=== PATIENT | female | born 1955 | race African-American/Black ===

== ENCOUNTER 2023-07-14 11:58 | Emergency (ER) | payer OTHER ==
[~2023-07-14] VITALS: Ht 162.6 cm; Wt 59.0 kg
[2023-07-14 12:00] VITALS: BP_SYST 154; PULSE 106; RESP 18; TEMP 99; O2SAT 99
[2023-07-14 12:21] LABS: BASOPHILS # (AUTO) 0.1 K/uL (0.0-0.2); BASOPHILS % (AUTO) 0.8 % (0.0-2.0); EOSINOPHILS # (AUTO) 0.2 K/uL (0.0-0.4); EOSINOPHILS % (AUTO) 2.1 % (0.0-4.0); HEMATOCRIT 31.9 % (36-48); HEMOGLOBIN 10.8 g/dL (12.0-16.0); LYMPHOCYTES # (AUTO) 1.4 K/uL (1.0-5.5); LYMPHOCYTES % (AUTO) 19.8 % (20.5-51.5); MEAN CORPUSCULAR HEMOGLOBIN 33 pg (27-31); MEAN CORPUSCULAR HGB CONC 34 % (32-36); MEAN CORPUSCULAR VOLUME 97 fL (79.0-98.0); MONOCYTES # (AUTO) 1.7 K/uL (0.0-1.0); MONOCYTES % (AUTO) 23.4 % (1.7-9.3); NEUTROPHILS % (AUTO) 53.9 % (40.0-70.0); PLATELET COUNT (AUTO) 105 K/uL (130-430); RED BLOOD CELL COUNT(AUTO) 3.28 MIL/uL (4.2-6.2); RED CELL DISTRIBUTION WIDTH 15.7 % (9.0-15.0); WHITE BLOOD COUNT (AUTO) 7.3 K/uL (4.8-10.8)
[2023-07-14] MEDS ORDERED: niCARdipine 25 MG in D5W 240 ML IV PRN (12:30)
[2023-07-14 12:38] LABS: INR 1.2 (0.8-1.2); PROTHROMBIN TIME 12.6 SECS (9.5-12.5)
[2023-07-14 12:47] LABS: ALANINE AMINOTRANSFERASE 39 U/L (12-78); ALBUMIN 3.1 g/dL (3.4-4.8); ANION GAP 10 (5-15); ASPARTATE AMINOTRANSFERASE 115 U/L (10-37); CALCIUM 10.8 mg/dL (8.4-11.0); CARBON DIOXIDE 24 mmol/L (23-29); CHLORIDE 105 mmol/L (98-107); CREATININE 1.02 mg/dL (0.55-1.30); GFR AFRICAN AMERICAN 69 mL/min (>90); GLUCOSE 94 mg/dL (74-106); POTASSIUM 3.4 mmol/L (3.5-5.1); SODIUM SERUM 139 mmol/L (136-145); TOTAL BILIRUBIN 2.4 mg/dL (0.0-1.0); TOTAL PROTEIN, SERUM 8.5 g/dL (6.4-8.3); UREA NITROGEN, BLOOD 15 mg/dL (8-21)
[2023-07-14 12:49] LABS: GFR NON AFRICAN-AMERICAN 57 mL/min (>90)
[2023-07-14 13:10] VITALS: BP_SYST 135; PULSE 107; RESP 16; TEMP 97.7; O2SAT 99
== END 2023-07-14 14:57 | disposition short-term general hospital (02) ==
LOC: SED 11:58
DX: I61.5 Nontraumatic intracerebral hemorrhage, intraventricular (principal); I10 Essential (primary) hypertension
CPT/HCPCS: 36415; 70450-TC; 71045; 76376; 80053; 83605; 84484; 85025; 85610-TC; 85730-TC; 93005; 99291; J7060

== ENCOUNTER 2024-02-12 11:00 | Inpatient (IN) | payer OTHER ==
[~2024-02-12] VITALS: Ht 162.6 cm; Wt 64.9 kg
[~2024-02-12 11:00] MED LIST: DOXY100C5 PO
[2024-02-12 11:10] VITALS: BP_SYST 141; PULSE 71; RESP 18; TEMP 98.3; O2SAT 97
[2024-02-12 11:50] LABS: BASOPHILS % (AUTO) 0.8 % (0.0-2.0); EOSINOPHILS # (AUTO) 0.2 K/uL (0.0-0.4); EOSINOPHILS % (AUTO) 3.3 % (0.0-4.0); HEMOGLOBIN 10.3 g/dL (12.0-16.0); LYMPHOCYTES # (AUTO) 1.3 K/uL (1.0-5.5); LYMPHOCYTES % (AUTO) 26.2 % (20.5-51.5); MEAN CORPUSCULAR HEMOGLOBIN 32 pg (27-31); MEAN CORPUSCULAR HGB CONC 34 % (32-36); MEAN CORPUSCULAR VOLUME 94 fL (79.0-98.0); MONOCYTES % (AUTO) 20.1 % (1.7-9.3); NEUTROPHILS # (AUTO) 2.5 K/uL (1.8-7.7); NEUTROPHILS % (AUTO) 49.6 % (40.0-70.0); PLATELET COUNT (AUTO) 84 K/uL (130-430); RED BLOOD CELL COUNT(AUTO) 3.19 MIL/uL (4.2-6.2); RED CELL DISTRIBUTION WIDTH 19.4 % (9.0-15.0)
[2024-02-12 12:05] LABS: CALCIUM 9.5 mg/dL (8.4-11.0); CREATININE 0.83 mg/dL (0.55-1.30); POTASSIUM 3.7 mmol/L (3.5-5.1)
[2024-02-12] MEDS ORDERED: CRE5 PO (12:59)
[2024-02-12] MEDS ORDERED: FOLI-43 PO (12:59)
[2024-02-12] MEDS ORDERED: LACT10SO6 PO (12:59)
[2024-02-12] MEDS ORDERED: ACETAMINOPHEN 325 MG TABLET PO PRN (13:00)
[2024-02-12] MEDS ORDERED: MORPHINE 2 MG/ML INJ. SYRINGE IVP PRN (13:00)
[2024-02-12] MEDS ORDERED: BENA40TA65 PO (13:01)
[2024-02-12] MEDS ORDERED: ACET325T39 PO (13:01)
[2024-02-12] MEDS ORDERED: HYDR-500 PO (13:01)
[2024-02-12] MEDS ORDERED: CARV12.548 PO (13:03)
[2024-02-12] MEDS ORDERED: LEVE500T99 PO (13:03)
[2024-02-12] MEDS ORDERED: ZOLPIDEM TARTRATE 5 MG TABLET PO PRN (14:15)
[2024-02-12] MEDS: CARVEDILOL 6.25 MG TABLET (COREG) PO ONE (14:23)
[2024-02-12] MEDS: LISINOPRIL 10 MG TABLET (PRINIVIL) PO ONE (14:23)
[2024-02-12] MEDS: NACL 0.9% 1,000 ML IV SCH (14:24)
[2024-02-12] MEDS: PANTOPRAZOLE SODIUM 40 MG/VIAL (PROTONIX) IVP ONE (15:56)
[2024-02-12] MEDS: MORPHINE 4 MG INJ. 4 MG/ML VIAL IVP PRN (18:53)
[2024-02-12 20:00] VITALS: BP_SYST 144; PULSE 67; RESP 18; TEMP 96.7; O2SAT 95
[2024-02-12 20:16] VITALS: BP_SYST 144; PULSE 67; RESP 18; TEMP 96.7
[2024-02-12] MEDS ORDERED: levETIRAcetam 500 MG TABLET PO ONE (21:00)
[2024-02-12] MEDS: CARVEDILOL 12.5 MG TABLET (COREG) PO SCH (21:25)
[2024-02-12] MEDS: levETIRAcetam 500 MG TABLET PO SCH (21:25)
[2024-02-13 01:07] VITALS: BP_SYST 146; PULSE 61; RESP 17; TEMP 97.6; O2SAT 94
[2024-02-13 08:00] VITALS: BP_SYST 129; PULSE 71; RESP 16; TEMP 96.8; O2SAT 95
[2024-02-13] MEDS: MIDAZOLAM HCL 5 MG/5 ML VIAL ONE (08:19)
[2024-02-13] MEDS: MEPERIDINE 100 MG INJ. 100 MG/ML VIAL ONE (08:19)
[2024-02-13 09:06] LABS: BASOPHILS % (AUTO) 0.5 % (0.0-2.0); EOSINOPHILS # (AUTO) 0.2 K/uL (0.0-0.4); EOSINOPHILS % (AUTO) 3.7 % (0.0-4.0); HEMATOCRIT 31.2 % (36-48); HEMOGLOBIN 10.6 g/dL (12.0-16.0); LYMPHOCYTES # (AUTO) 0.7 K/uL (1.0-5.5); LYMPHOCYTES % (AUTO) 15.3 % (20.5-51.5); MEAN CORPUSCULAR HEMOGLOBIN 32 pg (27-31); MEAN CORPUSCULAR HGB CONC 34 % (32-36); MEAN CORPUSCULAR VOLUME 94 fL (79.0-98.0); MONOCYTES # (AUTO) 0.9 K/uL (0.0-1.0); MONOCYTES % (AUTO) 19.7 % (1.7-9.3); NEUTROPHILS # (AUTO) 2.8 K/uL (1.8-7.7); NEUTROPHILS % (AUTO) 60.8 % (40.0-70.0); PLATELET COUNT (AUTO) 77 K/uL (130-430); RED BLOOD CELL COUNT(AUTO) 3.33 MIL/uL (4.2-6.2); RED CELL DISTRIBUTION WIDTH 18.9 % (9.0-15.0); WHITE BLOOD COUNT (AUTO) 4.6 K/uL (4.8-10.8)
[2024-02-13 09:07] LABS: ALBUMIN 2.4 g/dL (3.4-4.8); CREATININE 0.78 mg/dL (0.55-1.30); POTASSIUM 3.8 mmol/L (3.5-5.1); TOTAL BILIRUBIN 2.2 mg/dL (0.0-1.0); TOTAL PROTEIN, SERUM 6.6 g/dL (6.4-8.3)
[2024-02-13 09:19] LABS: INR 1.3 (0.8-1.2); PROTHROMBIN TIME 13.6 SECS (9.5-12.5)
[2024-02-13] MEDS: PANTOPRAZOLE SODIUM 40 MG/VIAL (PROTONIX) IVP SCH ×2 (09:29→21:40)
[2024-02-13] MEDS: LISINOPRIL 10 MG TABLET (PRINIVIL) PO SCH (09:30)
[2024-02-13 11:11] VITALS: BP_SYST 128; PULSE 72; RESP 14; TEMP 97.7; O2SAT 96
[2024-02-13] MEDS: D5/0.45 NS 1,000 ML IV SCH (13:56)
[2024-02-13 15:32] VITALS: BP_SYST 112; PULSE 74; RESP 16; TEMP 97.7; O2SAT 99
[2024-02-13 20:00] VITALS: BP_SYST 159; PULSE 89; RESP 16; TEMP 98.8; O2SAT 99
[2024-02-13] MEDS: ONDANSETRON HCL 4 MG/2 ML VIAL IVP PRN (21:40)
[2024-02-13 22:32] LABS: BASOPHILS % (AUTO) 0.2 % (0.0-2.0); EOSINOPHILS % (AUTO) 0.6 % (0.0-4.0); HEMATOCRIT 30.3 % (36-48); HEMOGLOBIN 10.9 g/dL (12.0-16.0); LYMPHOCYTES # (AUTO) 0.9 K/uL (1.0-5.5); LYMPHOCYTES % (AUTO) 11.7 % (20.5-51.5); MEAN CORPUSCULAR HEMOGLOBIN 33 pg (27-31); MEAN CORPUSCULAR HGB CONC 36 % (32-36); MEAN CORPUSCULAR VOLUME 93 fL (79.0-98.0); MONOCYTES # (AUTO) 1.2 K/uL (0.0-1.0); MONOCYTES % (AUTO) 16.1 % (1.7-9.3); NEUTROPHILS # (AUTO) 5.5 K/uL (1.8-7.7); NEUTROPHILS % (AUTO) 71.4 % (40.0-70.0); RED BLOOD CELL COUNT(AUTO) 3.26 MIL/uL (4.2-6.2); WHITE BLOOD COUNT (AUTO) 7.8 K/uL (4.8-10.8)
[2024-02-13 22:49] LABS: PLATELET COUNT (AUTO) 79 K/uL (130-430)
[2024-02-13 23:54] VITALS: BP_SYST 139; PULSE 84; RESP 17; TEMP 97.6; O2SAT 95
[2024-02-14 05:54] LABS: BASOPHILS % (AUTO) 0.2 % (0.0-2.0); EOSINOPHILS # (AUTO) 0.1 K/uL (0.0-0.4); EOSINOPHILS % (AUTO) 1.2 % (0.0-4.0); HEMOGLOBIN 10.4 g/dL (12.0-16.0); LYMPHOCYTES # (AUTO) 1.4 K/uL (1.0-5.5); LYMPHOCYTES % (AUTO) 15.5 % (20.5-51.5); MEAN CORPUSCULAR HEMOGLOBIN 33 pg (27-31); MEAN CORPUSCULAR HGB CONC 35 % (32-36); MEAN CORPUSCULAR VOLUME 94 fL (79.0-98.0); MONOCYTES # (AUTO) 1.6 K/uL (0.0-1.0); MONOCYTES % (AUTO) 17.8 % (1.7-9.3); NEUTROPHILS # (AUTO) 5.7 K/uL (1.8-7.7); NEUTROPHILS % (AUTO) 65.3 % (40.0-70.0); PLATELET COUNT (AUTO) 84 K/uL (130-430); WHITE BLOOD COUNT (AUTO) 8.7 K/uL (4.8-10.8)
[2024-02-14 06:15] LABS: CALCIUM 8.8 mg/dL (8.4-11.0); CREATININE 0.84 mg/dL (0.55-1.30); POTASSIUM 3.8 mmol/L (3.5-5.1)
[2024-02-14 08:00] VITALS: BP_SYST 150; PULSE 98; RESP 18; TEMP 98.9; O2SAT 96; O2SAT 99
[2024-02-14 11:03] VITALS: BP_SYST 155; PULSE 82; RESP 16; TEMP 97.7; O2SAT 96
[2024-02-14] MEDS ORDERED: HYDROcodone/ACETAMIN 5-325 MG TAB (NORCO/ VICODIN) PO PRN (13:45)
[2024-02-14 15:34] VITALS: BP_SYST 105; PULSE 64; RESP 16; TEMP 98; O2SAT 93
[2024-02-14 19:45] VITALS: O2SAT 99
[2024-02-14 20:00] VITALS: BP_SYST 139; PULSE 74; RESP 14; TEMP 97.4; O2SAT 99
[2024-02-15] MEDS: hydrALAZINE HCL 25 MG TABLET PO PRN (04:32)
[2024-02-15 05:27] VITALS: BP_SYST 139; PULSE 85; RESP 16; TEMP 97.8; O2SAT 97
[2024-02-15 05:40] LABS: BASOPHILS % (AUTO) 0.1 % (0.0-2.0); EOSINOPHILS # (AUTO) 0.2 K/uL (0.0-0.4); EOSINOPHILS % (AUTO) 2.9 % (0.0-4.0); HEMATOCRIT 32.6 % (36-48); HEMOGLOBIN 11.1 g/dL (12.0-16.0); LYMPHOCYTES # (AUTO) 1.1 K/uL (1.0-5.5); LYMPHOCYTES % (AUTO) 18.4 % (20.5-51.5); MEAN CORPUSCULAR HEMOGLOBIN 32 pg (27-31); MEAN CORPUSCULAR HGB CONC 34 % (32-36); MEAN CORPUSCULAR VOLUME 95 fL (79.0-98.0); MONOCYTES % (AUTO) 15.8 % (1.7-9.3); NEUTROPHILS # (AUTO) 3.8 K/uL (1.8-7.7); NEUTROPHILS % (AUTO) 62.8 % (40.0-70.0); PLATELET COUNT (AUTO) 86 K/uL (130-430); RED BLOOD CELL COUNT(AUTO) 3.44 MIL/uL (4.2-6.2)
[2024-02-15 05:52] LABS: CALCIUM 9.4 mg/dL (8.4-11.0); CREATININE 0.74 mg/dL (0.55-1.30); POTASSIUM 3.7 mmol/L (3.5-5.1)
[2024-02-15 08:00] VITALS: BP_SYST 112; PULSE 82; RESP 18; TEMP 97.2; O2SAT 99
[2024-02-15] MEDS: lisinopriL 20 MG TABLET PO SCH (09:33)
[2024-02-15] MEDS ORDERED: PRO40 PO (10:13)
[2024-02-15 11:14] VITALS: BP_SYST 112; PULSE 82; RESP 18; TEMP 97.2; O2SAT 99
[2024-02-15 12:00] VITALS: BP_SYST 124; PULSE 89; RESP 18; TEMP 98; O2SAT 99
== END 2024-02-15 14:00 | disposition home or self-care (01) | DRG 394 ==
LOC: SED 11:00 → SMU 13:00
PROVIDERS: ADMIT Internal Medicine; ATTEND Internal Medicine
PROC: 0DP68UZ Removal of Feeding Device from Stomach, Via Natural or Artificial Opening Endoscopic (ICD-10-PCS; principal; 2024-02-13 12:15)
PROC: 0DB68ZX Excision of Stomach, Via Natural or Artificial Opening Endoscopic, Diagnostic (ICD-10-PCS; 2024-02-13 12:15)
DX: K94.21 Gastrostomy hemorrhage (principal); D68.9 Coagulation defect, unspecified; K29.70 Gastritis, unspecified, without bleeding; I10 Essential (primary) hypertension; G40.909 Epilepsy, unspecified, not intractable, without status epilepticus; D69.59 Other secondary thrombocytopenia; D63.8 Anemia in other chronic diseases classified elsewhere; Z79.899 Other long term (current) drug therapy
CPT/HCPCS: 36415; 74018; 80048; 80053; 85025; 85610; 87081; 88305; 88312; 88313; J2175; J2250; J2270; J2405